=== PATIENT | female | born 1980 ===

== ENCOUNTER 2017-12-23 01:21 | Day surgery (SDC) | payer BC ==
[2017-12-23] VITALS (8 sets, daily range): BP systolic 93–107; BP diastolic 53–71
[~2017-12-23] VITALS: Ht 160 cm; Wt 59.9 kg
[~2017-12-23 01:21] MED LIST: ONDA4TAB97 PO; PREN-127 PO
[2017-12-23 07:02] LABS: PLATELET COUNT, AUTOMATED 281 K/uL (150-450)
[2017-12-23] MEDS ORDERED: fentaNYL CITR 100 MCG/2 ML AMP ONE ×2 (07:10→09:51)
[2017-12-23] MEDS ORDERED: ONDANSETRON 4 MG/2 ML VIAL ONE (07:11)
[2017-12-23] MEDS ORDERED: DEXAMETHASONE SOD PHOS 10MG/ML ONE (07:11)
[2017-12-23] MEDS ORDERED: LIDOCAINE MPF 1% 5 ML VIAL ONE (07:11)
[2017-12-23] MEDS ORDERED: PROPOFOL EMUL(*) 10MG/ML 20 ML 60 ML ONE (07:11)
[2017-12-23] MEDS ORDERED: cefOXitin SOD 2 GM VIAL 2 GM in NS(*) 0.9% 100 ML BAG 100 ML IVPB ONE (07:50)
[2017-12-23] MEDS ORDERED: MIDAZOLAM 2 MG/2 ML VIAL IVP PRN (09:10)
[2017-12-23] MEDS ORDERED: NORMOSOL R SOLN(*) 1000 ML BAG 1,000 ML IV PRN (09:10)
[2017-12-23] MEDS ORDERED: LIDOCAINE/SOD BICARB 8.4% SYR ID ONE (09:10)
[2017-12-23] MEDS ORDERED: FAMOTIDINE 20 MG TAB PO ONE (09:10)
[2017-12-23] MEDS ORDERED: KETOROLAC 30 MG/ML VIAL ONE (09:23)
[2017-12-23] MEDS ORDERED: LR(*) 1000 ML BAG 1,000 ML IV ONE (09:37)
--- NOTE | 2017-12-23 09:37 | Post Operative Note ---
Operative Note - DIRECTOR IT PROJECT Operative Day Date: December 23, 2017 Time: 09:36 Physicians Surgeon: MIGUEL A Anesthesia: GEN LMA Diagnosis Pre-Op Diagnosis: MISSED AB Post-Op Diagnosis: SAME Procedure Findings: SOUND DEPTH 9.5 CM Procedure(s): SUCTION D&C Specimen Removed:(Maybe N/A): POC Complications: #[id number] Fluids Fluids: IV CRYSTALLOID Estimated Blood Loss: MINIMAL Dictated Date OP Note Dictated: December 23, 2017 Time OP Note Dictated: 09:37 Copies to: PATRIZIA GRADY MD, TRAVIS MD December 23, 2017 09:37
[2017-12-23] MEDS ORDERED: APAP/HYDROCODONE 325/5 TAB PO PRN (09:40)
[2017-12-23] MEDS ORDERED: LOR5/325 PO (09:40)
--- NOTE | 2017-12-23 09:43 | Short(Outpt) Discharge Summary ---
Discharge Summary Reason for Hosp/Final Diag: (1) Missed ab Hospital Course & Plan: S/P SUCTION D&C Departure Discharge to: Home, Self Care Discharge Instructions Home Meds Active Scripts Hydrocodone Bit/Acetaminophen (HYDROCODON-ACETAMINOPHEN 5-325) 1 Each Tablet, 1 EACH PO Q4-6H Y for PAIN, #10 TAB 0 Refills Prov:DAVID LEO MD 12/23/17 Reported Medications Vits W-Ca,Fe,Fa(<1MG) ( VITAMINS) 1 Each Tablet, 1 EACH PO DAILY, TAB 12/21/17 Ondansetron Hcl (ZOFRAN) 4 Mg Tablet, 4 MG PO PRN, TAB 12/21/17 Follow up Referrals: METEOROLOGICAL TECHNICIAN - In Two Weeks @ [facility] with David Leo Md Diet: Regular Activity: As Tolerated, No Heavy Lifting, No Exertion Copies to: DAVID LEO MD, TRAVIS MD December 23, 2017 09:41
[2017-12-23] MEDS ORDERED: PROMETHAZINE 25 MG/ML 1 ML AMP ONE (10:34)
--- NOTE | 2017-12-23 13:28 | OPERATIVE REPORT 1 ---
EVENT DATE: December 23, 2017 SURGEON: David Leo MD ANESTHESIOLOGIST: Hi Mckoy MD ANESTHESIA: General LMA. PREOPERATIVE DIAGNOSIS Missed at approximately ten weeks. POSTOPERATIVE DIAGNOSIS Missed at approximately ten weeks. PROCEDURE PERFORMED Suction dilation and curettage. ESTIMATED BLOOD LOSS Minimal. FLUIDS IV crystalloid. FINDINGS The uterus sounded to a depth of 9.5 cm. Normal-appearing products of conception. Small tenaculum laceration no the anterior cervix. PROCEDURE IN DETAIL The patient was brought to the operating room, placed in the dorsal supine position, and placed under general LMA anesthesia. She was then moved to the dorsal lithotomy position and prepped and draped in the usual sterile fashion. Weighted speculum was placed in the vagina. The cervix was grasped on the anterior lip with a single tooth tenaculum. It was carefully sounded to a depth of 9.5 cm, retroverted. The cervix was then dilated carefully to size 10 Hegar dilator. A curved suction curette was then passed through the cervix into the uterus. Suction was applied to a pressure of 35 mmHg, and curette was rotated about while it was carefully withdrawn. Moderate amount of products of conception were evacuated with a scant amount of blood. At this point, a sharp bovine curette was passed into the uterus, and all four quadrants of the uterus were curetted until a gritty texture was palpable. One additional pass with a curved suction curette returned a scant amount of blood and tissue, therefore the procedure was terminated. There was a cervical laceration noted due to the tenaculum, which received a [id number] stitch of 3-0 Chromic. No complications. She was returned to the dorsal supine position, awakened from general anesthesia in stable condition and taken to recovery. Sponges and instruments were all correct. TUYET
== END 2017-12-23 10:55 | disposition home or self-care (01) ==
LOC: OR 01:21
PROVIDERS: ATTEND Obstetrics & Gynecology
DX: O02.1 Missed abortion (principal); Z3A.10 10 weeks gestation of pregnancy
CPT/HCPCS: 36415; 59820; 84702; 84703; 85025; 88305; J0694; J1100; J1885; J2001; J2250; J2405; J2550; J2704; J3010; J7050

== ENCOUNTER 2019-01-13 05:15 | Inpatient (IN) | payer BC ==
[~2019-01-13] VITALS: Ht 160 cm; Wt 65.3 kg
[~2019-01-13 05:15] MED LIST changes: +LOR5/325 PO
[2019-01-13] MEDS ORDERED: METOCLOPRAMIDE 10 MG/2 ML SDV IVP PRN (05:20)
[2019-01-13] MEDS ORDERED: LIDOCAINE 1% LOCAL 300 MG/30ML INJ PRN (05:20)
[2019-01-13] MEDS ORDERED: cefOXitin/DEX(*) 2GM/50ML PREM 50 ML IVPB PRN (05:20)
[2019-01-13] MEDS ORDERED: OXYTOCIN 30 UNIT/NS 500 ML 500 ML IV PRN (05:20)
[2019-01-13] MEDS ORDERED: fentaNYL CITR 100 MCG/2 ML AMP IVP PRN (05:20)
[2019-01-13] MEDS ORDERED: TERBUTALINE SULF 1 MG/ML VIAL SUBQ PRN (05:20)
[2019-01-13] MEDS ORDERED: FAMOTIDINE(*) 20MG/50ML PREMIX 50 ML IVPB PRN (05:20)
[2019-01-13] MEDS: LR(*) 1000 ML BAG 1,000 ML IV PRN ×4 (06:00→15:35)
[2019-01-13 06:42] VITALS: BP 122/79; Ht 160 cm; Wt 65.3 kg
[2019-01-13 06:55] LABS: PLATELET COUNT, AUTOMATED 217 K/uL (150-450)
[2019-01-13] MEDS ORDERED: FENTANYL/ROPIVACAINE 100 ML BAG EPI PRN (07:15)
[2019-01-13] MEDS ORDERED: LIDO/EPI 2% MPF 1:200,000 20ML EPI PRN (07:15)
[2019-01-13] MEDS ORDERED: BUPIVACAINE 0.5% INJ 30ML VIAL EPI PRN (07:15)
[2019-01-13] MEDS ORDERED: fentaNYL CITR 100 MCG/2 ML AMP IT PRN (07:15)
[2019-01-13] MEDS ORDERED: LIDOCAINE/PF 2% 200MG/10ML AMP 200 MG/10 ML AMPUL EPI PRN (07:15)
[2019-01-13] MEDS ORDERED: BUPIVACAINE 0.25% MPF INJ EPI PRN (07:15)
[2019-01-13] MEDS ORDERED: fentaNYL CITR 100 MCG/2 ML AMP ONE (07:44)
[2019-01-13] MEDS ORDERED: BUPIVACAINE 0.25% MPF INJ ONE (07:45)
[2019-01-13] MEDS ORDERED: FENTANYL/ROPIVACAINE 100ML BAG 100 ML ONE (07:45)
[2019-01-13] MEDS ORDERED: ONDANSETRON 4 MG/2 ML VIAL ONE (07:45)
--- NOTE | 2019-01-13 08:20 | History & Physical ---
History of Present Illness Age of Patient: 38 : 3 Para or TPAL: 0 EDC per LMP: Jan 20, 2019 Estimated Gestational Age: 39.0 Chief Complaint labor induction History of Present Illness Presents for planned labor induction. complicated by AMA and size less than dates. F/U u/s showed normal interval growth however. Last exam in office = 3 cm. History Allergies: Coded Allergies: No Known Drug Allergies (Unverified , 12/21/17) Med Rec Home Meds Active Scripts Hydrocodone Bit/Acetaminophen (HYDROCODON-ACETAMINOPHEN 5-325) 1 Each Tablet, 1 EACH PO Q4-6H PRN for PAIN, #10 TAB 0 Refills Prov:PATRIZIA GRADY MD 12/23/17 Reported Medications Vits W-Ca,Fe,Fa(<1MG) ( VITAMINS) 1 Each Tablet, 1 EACH PO RUDDY LY, TAB 12/21/17 Ondansetron Hcl (ZOFRAN) 4 Mg Tablet, 4 MG PO PRN, TAB 12/21/17 Review of Systems All Systems Reviewed/Normal: Yes, Except as Noted Exam General Exam Vital Signs Vital Signs Date Time Temp Pulse Resp B/P (MAP) Pulse Ox O2 Delivery O2 Flow Rate FiO2 01/13/19 06:42 97.5 85 16 122/79 (93) 96 Room Air General Apperance: Alert/Awake/No Acute Distress Neuro: No Gross deficits Cardiovascular: Regular Rate and Rhythm Respiratory: No Respiratory Distress, Clear to Auscultation Abdomen: Soft, Non-Tender, Non-Distended Extremities: No Cyanosis,Clubbing or Edema Integumentary: Skin Intact without Lesions or Rash Psychological: Alert & Oriented X3, Appropriate Mood & Affect Vaginal Discharge/Fluid?: Bloody Show Cervical Dialation: 3 Cervical Effacement (%): 85 Cervical Consistency: Soft Station: -1 Presentation: Vertex Fetus Heart Tone Variabilty: Moderate FHT Accelerations: 15X15 FHT Category: I Medical Decision Making Data Points Result Diagram: 01/13/19 0646 VTE Prophylasis: Adult Deep Vein Thrombosis/Pulmonary: No Pharmacological Contraindicati: Pt at Low Risk for VTE Mechanical Contraindications: Pt at Low Risk for VTE 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 Expecting . PATRIZIA GRADY MD Jan 13, 2019 08:20
--- NOTE | 2019-01-13 09:04 | Anesthesia OB Pre-Anes Eval ---
History of Present Illness Anesthesia Start Date: Jan 13, 2019 Anesthesia Start Time: 07:48 OB Anesthesia Diagnosis: induction - elective EDC: Jan 20, 2019 : 3 Para: 0 Vital Signs: Vital Signs 01/13/19 06:42 Temp 97.5 Pulse 85 Resp 16 B/P (MAP) 122/79 (93) Pulse Ox 96 O2 Delivery Room Air Pain Ratin Heart Tones: 133 Result Diagram: 01/13/19 0646 Height (Inches): 63.00 Weight (Pounds): 144 Past Medical History Medical History: no pertinent history Surgical History: other Previous Anesthesia: general Attended Childbirth Classes?: No Hx Anesthesia Reactions: No Hx Family Anesthesia Reaction: No Current Medications: pitocin Home Meds Active Scripts Hydrocodone Bit/Acetaminophen (HYDROCODON-ACETAMINOPHEN 5-325) 1 Each Tablet, 1 EACH PO Q4-6H PRN for PAIN, #10 TAB 0 Refills Prov:PATRIZIA GRADY MD 12/23/17 Reported Medications Vits W-Ca,Fe,Fa(<1MG) ( VITAMINS) 1 Each Tablet, 1 EACH PO DAILY, TAB 12/21/17 Ondansetron Hcl (ZOFRAN) 4 Mg Tablet, 4 MG PO PRN, TAB 12/21/17 Allergies: Coded Allergies: No Known Drug Allergies (Unverified , 12/21/17) Anesthesia OB ROS Neurological: No migraines/headaches, No seizures, No neuropathy, No other ENT: Denies Tooth caps, Denies Loose teeth, Denies Chipped teeth, Denies Dentures, Denies Bridges, Denies Retainers, Denies Veneers, Denies Implants, Denies Tongue ring, Denies Other Pulmonary: No asthma, No smoker (pks/day/yrs), No other Airway Class: ll Cardiovascular ROS: No edema, No arrhythmia, No other GI ROS: clear liquids Last Solids Date: Jan 13, 2019 Last Solids Time: 04:00 ROS: No Herpes, No STD(s), No Liver Disease, No Renal Disease, No Other Endocrine ROS: No diabetes, No gestational diabetes, No thyroid disorder, No other Musculoskeletal ROS: No low back pain, No low back injury, No scoliosis, No other ASA Classification: 2 Assessment and Plan Anesthesia Plan: AURELIO ROJO CRNA Jan 13, 2019 09:04
--- NOTE | 2019-01-13 09:08 | Procedure Note ---
Anesthetic Placement Note Anesthesia Plan: CSE Permit for Anesthesia Signed: Yes Anesthesia Technique: Patient Sitting Interspace: L 2-3 Local Anesthetic: 1% Lidocaine, 25 Gauge Needle Amount Local - cc's: 3 Anesthesia Needle: 17g Touhy/Schliff Anesthesia Attempts: 1 Loss of Resistance: Normal Saline Depth of MORALES (cm): 4 Epidural Needle Placement: Parasthesia (r thigh) Intrathecal Needle: 27 Gauge Pencan Cerebral Spinal Fluid: Yes, Clear Catheter Insertion (cm): 5 (9cm@skin) Catheter Type: Álvarez - Spring Wound Epidural Dressing: Tegaderm, Tape Anesthesia Tray: Lot Number ([id number]), Expiration Date (03/29), Reference Number ([id number]) Anesthesia Medications: Intrathecal Dose: mcg Fentanyl (10), mg Marcaine MPF (2.5), Time (0805) Epidural Test Dose: 1.5 Lido/Epi (1:200,000), Dose - mL (3), Time (0808), Negative Epidural Infusion: 0.2% Ropivicaine, With Fentanyl 2mcg/ml, Start Time: (08) Epidural Pump Setting: Bolus Dose - mL (8), Lockout - Minutes (20), Maintenance Rate - mL/hr (6), Maximum per Hour - mL (30) Complications: None AURELIO AGUILAR CRNA Jan 13, 2019 09:08
--- NOTE | 2019-01-13 16:41 | Anesthesia Progress Note ---
Progress/Maintenance Anesthesia Note Date: Jan 13, 2019 Anesthesia Note Time: 14:20 Pain Intensity: 1 Pump: On Sensory Level: feels tightening Dilatation: 6 Position: Other (sitting upright) AURELIO AGUILAR CRNA Jan 13, 2019 16:41
[2019-01-13] MEDS ORDERED: CARBOPROST TROMETHAM 250MCG/ML IM ONLY ONE (18:34)
[2019-01-13] MEDS ORDERED: METHYLERGONOVINE MAL 0.2MG/ML ONE (18:34)
--- NOTE | 2019-01-13 19:21 | Anesthesia Progress Note ---
Progress/Maintenance Anesthesia Note Date: Jan 13, 2019 Anesthesia Note Time: 18:40 Pain Intensity: 8 Pump: On Pump Rate (ML/HR): 6 Sensory Level: C&P pressure Motor Level: Bending Knees-Bilateral Dilatation: 10 Position: Semi-Fowlers Drug Bolus: Other (Fent 90 mcg . 2% lido w epi 5cc per epidural) Assessment and Plan Anesthesia Stop Day: Jan 13, 2019 Anesthesia Stop Time: 19:15 AURELIO AGUILAR CRNA Jan 13, 2019 19:21
[2019-01-13] MEDS ORDERED: MAGNESIUM HYDROXIDE* 30ML UDCP PO PRN (19:25)
[2019-01-13] MEDS ORDERED: APAP/HYDROCODONE 325/5 TAB PO PRN (19:25)
[2019-01-13] MEDS ORDERED: ACETAMINOPHEN 325 MG TAB PO PRN (19:25)
[2019-01-13] MEDS ORDERED: LANOLIN OINT 7 GM TUBE TP PRN (19:25)
[2019-01-13] MEDS ORDERED: INFLUENZA VIRUS VAC 0.5ML SYR IM ONLY ONE (19:25)
[2019-01-13] MEDS ORDERED: BENZOCAINE 20% 60 ML BTL TP PRN (19:25)
--- NOTE | 2019-01-13 19:39 | OB Delivery Note ---
Delivery Note Vaginal Delivery Type: Forceps, Low Delivery Date: Jan 13, 2019 Delivery Time: 18:54 Estimated Gestational Age(wks): 39.0 Indication (if vag op): INTERMITTENT TACHYCARDIA AND MATERNAL EXHAUSTION Delivery Anesthesia: Epidural Sex: Female Infant Weight (gms): 2895 Apgars: 1 Minute (8), 5 Minute (7), 10 Minute (9) Repair Needed: Laceration, Vaginal (EXTENSION), 2nd Degree Estimated Blood Loss: 300 Delivery Complications: Laceration Notes: IOL for term and elective. Presented at 3 cm and progressed to 4 cm by 1019 after AROM at 0744. Epidural placed at 0745. Progressed through first stage of labor routinely to 6 cm by 1216 and 9 cm by 1419. She slowed from here to get to complete by 1708 and then began pushing. Pushing well but slow descent from +1 to +2 and gradual progression to tachycardia intermittently. After pushing for 1.5 hours and feeling exhausted and after informed consent, she elected to have forceps assisted vaginal delivery. Risks explained in detail and discussed as alternative. Bladder drained and baby confirmed in NASRIN position. Application successful and two contractions with assistance required to bring the vtx to . Perineum stabilized while delivery over second degree laceration. Shoulders delivered with pt positioned in lithotomy position and remainder of baby followed. Significant caput formation and skull molding. Placenta delivered intact and spontaneous. Second degree laceration with vaginal extension along left sulcus and deep perineal defect. Repair with 2-0 Chromic and 2-0 Vicryl in the deep portions. Excellent result and hemostasis. Uterus firm and bleeding light. Aircraft Dispatcher in Attendence: No Copies to: PATRIZIA GRADY MD ; PATRIZIA GRADY MD Jan 13, 2019 19:39
[2019-01-13] MEDS: DOCUSATE CALCIUM 240 MG CAP PO SCH (21:00)
[2019-01-13] MEDS: GLYCERIN/WITCH HAZEL LEAF 1 PK TOP PRN (22:01)
[2019-01-13] MEDS: IBUPROFEN 800 MG TAB PO SCH (22:01)
[2019-01-13] MEDS: HYDROCORTISONE 2.5% CR 30GM TB PR PRN (22:01)
[2019-01-13 23:00] VITALS: BP 114/60
[2019-01-14] MEDS ORDERED: LIDOCAINE 1% LOCAL 300 MG/30ML 30 ML ONE (01:11)
[2019-01-14 03:20] VITALS: BP 100/56
[2019-01-14] MEDS: IBUPROFEN 800 MG TAB PO SCH ×3 (05:32→21:23)
[2019-01-14 08:40] VITALS: BP 113/56
[2019-01-14] MEDS: DOCUSATE CALCIUM 240 MG CAP PO SCH ×2 (08:51→21:23)
--- NOTE | 2019-01-14 09:17 | OB/GYN Progress Note ---
OB Subjective Progress Notes Subjective Doing well. Pain well controlled and ambulating well. Voiding and tolerating regular diet. GI: NEG Nausea : Voiding Well Pain: Mild OB Objective Physical Exam Vital Signs Date Time Temp Pulse Resp B/P (MAP) Pulse Ox O2 Delivery O2 Flow Rate FiO2 01/14/19 03:20 97.8 80 20 100/56 (71) Room Air 01/13/19 06:42 96 Intake and Output 01/14/19 07:00 Intake Total 3897 ml Output Total 200 ml Balance 3697 ml Intake IV Total 3897 ml Output Urine Total 200 ml # Voids 1 General Appearance: Alert/Awake/No Acute Distress Neurological: No Gross deficits Cardiovascular: Normal Rhythm & Peripheral Pulses, Regular Rate and Rhythm Respiratory: No Respiratory Distress, Clear to Auscultation Abdomen: Soft, Non-Tender, Non-Distended, Fundus Firm, Non-Tender Extremities: No Cyanosis,Clubbing or Edema Integumentary: Skin Intact without Lesions or Rash Psychological: Alert & Oriented X3, Appropriate Mood & Affect Result Diagram: 01/14/19 0559 Assessment and Plan [employer] SYSTEM OPERATOR Plan: Routine Post- Care, Discharge Home Tomorrow Problems: (1) Advanced maternal age (AMA) in (2) 39 weeks gestation of (3) care and examination immediately after delivery PATRIZIA GRADY MD Jan 14, 2019 09:17
[2019-01-14 11:51] VITALS: BP 126/58
--- NOTE | 2019-01-14 12:13 | Anesthesia Post Eval Note ---
Anesthesia Post Eval Note Vital Signs 01/13/19 01/14/19 06:42 03:20 Temp 97.8 Pulse 80 Resp 20 B/P (MAP) 100/56 (71) Pulse Ox 96 O2 Delivery Room Air Pt able to participate in Eval: Yes Cardiovascular Status: Satisfactory Respiratory Status: Satisfactory Pain Managment: Satisfactory PO Nausea/Vomiting: Satisfactory Temperature Management: Satisfactory Mental Status: Satisfactory, Alert, Oriented X3 Post-Op Hydration Status: Satisfactory, Tolerating PO Well, Voiding w/o Difficulty Anesthesia Type: AURELIO ROJO CRNA Jan 14, 2019 12:13
[2019-01-14] MEDS: HYDROCORTISONE 2.5% CR 30GM TB PR PRN (13:10)
[2019-01-14 19:40] VITALS: BP 106/61
[2019-01-14 23:30] VITALS: BP 110/64
[2019-01-15 03:15] VITALS: BP 94/62
[2019-01-15] MEDS: IBUPROFEN 800 MG TAB PO SCH (05:14)
[2019-01-15 07:15] VITALS: BP 104/56
[2019-01-15] MEDS: DOCUSATE CALCIUM 240 MG CAP PO SCH (08:47)
[2019-01-15] MEDS: GLYCERIN/WITCH HAZEL LEAF 1 PK TOP PRN (10:28)
--- NOTE | 2019-01-15 10:55 | OB/GYN Progress Note ---
OB Subjective Progress Notes Subjective Feeling well. Pain well controlled and ambulating well. Bleeding light. GI: NEG Nausea : Voiding Well Pain: Mild OB Objective Physical Exam Vital Signs Date Time Temp Pulse Resp B/P (MAP) Pulse Ox O2 Delivery O2 Flow Rate FiO2 01/15/19 07:15 97.4 74 18 104/56 (72) 01/14/19 19:40 94 Room Air Intake and Output 01/15/19 07:00 Intake Total 0 ml Balance 0 ml Intake Oral 0 ml # Voids 2 General Appearance: Alert/Awake/No Acute Distress Neurological: No Gross deficits Cardiovascular: Normal Rhythm & Peripheral Pulses, Regular Rate and Rhythm Respiratory: No Respiratory Distress, Clear to Auscultation Abdomen: Soft, Non-Tender, Non-Distended, Fundus Firm, Non-Tender Extremities: No Cyanosis,Clubbing or Edema Integumentary: Skin Intact without Lesions or Rash Psychological: Alert & Oriented X3, Appropriate Mood & Affect Result Diagram: 01/14/19 0559 Assessment and Plan MARKETING OUTREACH COORDINATOR Plan: Discharge Home Today Problems: (1) Advanced maternal age (AMA) in (2) 39 weeks gestation of (3) care and examination immediately after delivery Assessment & Plan: reviewed discharge instructions. Return to office in 6 weeks. PATRIZIA GRADY MD Jan 15, 2019 10:55
[2019-01-15] MEDS ORDERED: IBUP800T37 PO (10:57)
[2019-01-15] MEDS ORDERED: LOR5/325 PO (10:57)
--- NOTE | 2019-01-15 11:00 | OB/GYN Discharge Summary ---
Discharge Summary Reason for Hosp/Final Diag: (1) Advanced maternal age (AMA) in (2) 39 weeks gestation of (3) care and examination immediately after delivery Hospital Course & Plan: reviewed discharge instructions. Return to office in 6 weeks. Lates Vital Signs Vital Signs Date Time Temp Pulse Resp B/P (MAP) Pulse Ox O2 Delivery O2 Flow Rate FiO2 01/15/19 07:15 97.4 74 18 104/56 (72) 01/14/19 19:40 94 Room Air Weight (Pounds): 144 Result Diagram: 01/14/19 0559 Condition: Improved Discharge: Home, Self Long Term Meds Active Scripts Hydrocodone Bit/Acetaminophen (HYDROCODON-ACETAMINOPHEN 5-325) 1 Each Tablet, 1 EACH PO Q4-6H PRN for PAIN, #10 TAB 0 Refills Prov:PATRIZIA LEO MD 01/15/19 Reported Medications Vits W-Ca,Fe,Fa(<1MG) ( VITAMINS) 1 Each Tablet, 1 EACH PO DAILY, TAB 12/21/17 Ondansetron Hcl (ZOFRAN) 4 Mg Tablet, 4 MG PO PRN, TAB 12/21/17 Follow up Referrals: SYSTEMS INTEGRATION MANAGER - In 6 Weeks @ [facility] with PATRIZIA LEO MD Follow up with: Dr. Leo [phone] Follow up in: 6 wks PP or PO Discharge Diet: As Tolerates, Increase Fluid Intake Discharge Activity: As Tolerates, No Heavy Lifting x 6 wks, No Heavy Lifting > 10lb, Pelvic Rest Special Instructions: Copies to: PATRIZIA LEO MD ; PATRIZIA LEO MD Jan 15, 2019 11:00
[2019-01-15] MEDS ORDERED: DIPHTH/TETANUS/ACEL. PERTUSSIS IM ONLY ONE (19:25)
[2019-01-15] MEDS ORDERED: MEASLES,MUMP,RUBELLA VAC 0.5ML SUBQ ONE (19:25)
== END 2019-01-15 12:25 | disposition home or self-care (01) | DRG 807 ==
LOC: OB 05:15
PROVIDERS: ADMIT Obstetrics & Gynecology; ATTEND Obstetrics & Gynecology
PROC: 10D07Z3 Extraction of Products of Conception, Low Forceps, Via Natural or Artificial Opening (ICD-10-PCS; principal; 2019-01-13)
PROC: 0KQM0ZZ Repair Perineum Muscle, Open Approach (ICD-10-PCS; 2019-01-13)
PROC: 10907ZC Drainage of Amniotic Fluid, Therapeutic from Products of Conception, Via Natural or Artificial Opening (ICD-10-PCS; 2019-01-13)
PROC: 3E033VJ Introduction of Other Hormone into Peripheral Vein, Percutaneous Approach (ICD-10-PCS; 2019-01-13)
DX: O36.5930 Maternal care for other known or suspected poor fetal growth, third trimester, not applicable or unspecified (principal); Z37.0 Single live birth; O76 Abnormality in fetal heart rate and rhythm complicating labor and delivery; O75.81 Maternal exhaustion complicating labor and delivery; O70.1 Second degree perineal laceration during delivery; Z3A.39 39 weeks gestation of pregnancy
CPT/HCPCS: 36415; 85025; 85027; 86850; 86900; 86901; J2001; J2405; J2590; J3010; J7120; S0020